=== PATIENT | male | born 1990 | race Caucasian/White ===

== ENCOUNTER 2020-11-15 18:28 | Emergency (ER) | payer SELFPAY ==
[~2020-11-15] VITALS: Ht 177.8 cm; Wt 99.8 kg
[~2020-11-15 18:28] MED LIST: MOTRIN800 MG PO; ULTRAM50 MG PO
[2020-11-15] MEDS ORDERED: IBUPROFEN600 MG PO (20:55)
== END 2020-11-15 21:17 | disposition home or self-care (01) ==
LOC: ED 18:28
DX: S86.911A Strain of unspecified muscle(s) and tendon(s) at lower leg level, right leg, initial encounter (principal); F17.200 Nicotine dependence, unspecified, uncomplicated; Z88.0 Allergy status to penicillin; Z79.899 Other long term (current) drug therapy; Z98.890 Other specified postprocedural states; X58.XXXA Exposure to other specified factors, initial encounter; Y93.89 Activity, other specified; Y92.89 Other specified places as the place of occurrence of the external cause; Y99.8 Other external cause status